=== PATIENT | female | born 1975 | race Hispanic/Latino ===

== ENCOUNTER 2021-03-25 14:52 | Outpatient (CLI) | payer BC | END 2021-03-25 14:53 | disposition home or self-care (01) | LOC: BICRAD 14:52 | PROVIDERS: ATTEND Family Medicine | DX: M25.531 Pain in right wrist (principal) ==

== ENCOUNTER 2024-12-11 12:01 | Outpatient (CLI) | payer BC, OTHER ==
[2024-12-11 13:22] LABS: #Basophils 0.09 10x3/uL (0.0-0.2); #Eosinophils 0.34 10x3/uL (0.0-0.7); #Monocytes 0.50 10x3/uL (0.11-0.59); #Neutrophils 4.91 10x3/uL (1.40-6.50); %Basophils 1.1 % (0.0-1.0); %Eosinophils 4.3 % (0.0-10.0); %Lymphocytes 25.5 % (21.0-51.0); %Monocytes 6.4 % (0.0-10.0); %Neutrophils 62.4 % (42.0-75.0); Hematocrit 43.3 % (36.0-47.0); Hemoglobin 14.1 g/dL (12.0-16.0); Mean Corpuscular Hemoglobin 28.4 pg (27.0-31.0); Mean Corpuscular Volume 87.3 fL (78.0-98.0); Platelet Count 329 10x3/uL (130-400); Red Blood Cell (RBC) Count 4.96 mill/uL (4.20-5.40); White Blood Cell (WBC) Count 7.87 10x3/uL (4.8-10.8)
[2024-12-11 13:39] LABS: Anion Gap 8 mmol/L (10-20); BUN (Urea Nitrogen) 9 mg/dL (7.0-18.7); Calc. Creatinine Clearance 0 mL/min (70-130); Calcium 9.1 mg/dL (7.8-10.44); Carbon Dioxide 27 mmol/L (22-29); Chloride 109 mmol/L (98-107); Glucose 106 mg/dL (70-105); Potassium 3.4 mmol/L (3.5-5.1); Sodium 141 mmol/L (136-145)
== END 2024-12-11 12:02 | disposition home or self-care (01) ==
LOC: LABBT 12:01
PROVIDERS: ATTEND Orthopaedic Surgery
DX: Z01.818 Encounter for other preprocedural examination (principal); S83.241A Other tear of medial meniscus, current injury, right knee, initial encounter
CPT/HCPCS: 80048; 85025; 93005; 93010

== ENCOUNTER 2024-12-14 08:25 | Day surgery (SDC) | payer OTHER ==
[2024-12-11 12:12] VITALS: BMI 35.6
[2024-12-14] MEDS ORDERED: PROPOFOL 20 ML ONE (09:10)
[2024-12-14] MEDS ORDERED: CEFAZOLIN 2 GM VIAL ONE (09:35)
[2024-12-14] MEDS ORDERED: Ondansetron PF 4 MG/2 ML Vial ONE (10:09)
[2024-12-14] MEDS ORDERED: PHENYLEPHRINE-NS 100 MCG/ML 10 ML SYRINGE ONE (10:09)
[2024-12-14] MEDS ORDERED: Lidocaine 1% PF 5 ML VIAL ONE (10:09)
[2024-12-14] MEDS ORDERED: fentaNYL PF 100 MCG/2 ML SYRINGE ONE (11:14)
[2024-12-14] MEDS ORDERED: HYDROcodone/Acetaminophen 5/325 mg Tablet ONE (13:57)
== END 2024-12-14 15:04 | disposition home or self-care (01) ==
LOC: SDC 08:25
PROVIDERS: ATTEND Orthopaedic Surgery
PROC: 0SBC4ZZ Excision of Right Knee Joint, Percutaneous Endoscopic Approach (ICD-10-PCS; principal; 2024-12-14)
PROC: 3E0T3BZ Introduction of Anesthetic Agent into Peripheral Nerves and Plexi, Percutaneous Approach (ICD-10-PCS; principal; 2024-12-14)
DX: S83.241A Other tear of medial meniscus, current injury, right knee, initial encounter (principal); M94.261 Chondromalacia, right knee; Z90.49 Acquired absence of other specified parts of digestive tract; X58.XXXA Exposure to other specified factors, initial encounter
CPT/HCPCS: J0169; J0665; J1100; J2405; J2704; J3010